=== PATIENT | female | born 1965 | race Caucasian/White ===

== ENCOUNTER → 2020-08-16 | Outpatient (CLI) | payer OTHER, SELFPAY ==
[2020-08-16 11:42] LABS: Cholesterol 167 mg/dL (200); Glucose 90 mg/dL (74-106); High Density Lipoprotein 58 mg/dL; T4 Free Direct 0.95 ng/dL (0.76-1.46); Thyroid Stim Hormone (TSH) 4.35 uIU/mL (0.358-3.74); Triglycerides 53 mg/dL; Very Low Density Lipoprotein 11 mg/dL (5-40)
== END | disposition home or self-care (01) ==
LOC: LABSPEC 10:49
PROVIDERS: Referring Provider Nurse Practitioner Primary Care; Visit Provider Nurse Practitioner Primary Care
DX: L65.9 Nonscarring hair loss, unspecified (principal); Z13.6 Encounter for screening for cardiovascular disorders; Z13.228 Encounter for screening for other metabolic disorders
CPT/HCPCS: 80061; 82947; 84439; 84443

== ENCOUNTER → 2020-09-02 | Outpatient (CLI) | payer OTHER, SELFPAY ==
[2020-09-02 16:01] LABS: T4 Free Direct 0.95 ng/dL (0.76-1.46); Thyroid Stim Hormone (TSH) 3.99 uIU/mL (0.358-3.74)
[2020-09-06 16:08] LABS: Thyroid Peroxidase AB < 9 IU/mL (0-34)
[2020-09-06 18:01] LABS: Thyroglobulin Antibody < 1.0 IU/mL (0.0-0.9)
== END | disposition home or self-care (01) ==
LOC: LABSPEC 15:18
PROVIDERS: Visit Provider Nurse Practitioner Primary Care
DX: E03.9 Hypothyroidism, unspecified (principal)
CPT/HCPCS: 84439; 84443; 86376; 86800